=== PATIENT | male | born 1970 | race Caucasian/White ===

== ENCOUNTER 2017-05-13 10:20 | Emergency (ER) | payer MEDICAID, OTHER ==
[2017-05-13 10:34] VITALS: BP 104/69; PULSE 74; RESP 16; TEMP 97.9; O2SAT 98
--- NOTE | 2017-05-13 10:58 | ED PDOC ---
HPI: Eye Injury/Pain Time Seen by Provider: 05/13/17 10:54 Chief Complaint (Nursing): Eye Problem Chief Complaint (Provider): eye complaint History Per: Patient Additional Complaint(s): 46-year-old male presents to emergency Department with pain to the left eye. Patient is status post corneal transplant surgery in 2013 and yesterday and today he noticed sutures coming out of left eye. Patient states that his eye surgeon and explained that this would happen several years after the initial procedure and that he should seek immediate attention when he noticed this. Patient did not contact his eye doctor. He came right to this emergency room. Patient has blurred vision at baseline and denies acute change or loss in left eye vision since suture started coming out yesterday. Past Medical History Reviewed: Historical Data, Nursing Documentation, Vital Signs Vital Signs: Last Vital Signs Temp 97.9 F 05/13/17 10:33 Pulse 74 05/13/17 10:33 Resp 16 05/13/17 10:33 BP 104/69 05/13/17 10:33 Pulse Ox 98 05/13/17 10:33 - Medical History PMH: No Chronic Diseases - Surgical History Other surgeries: left eye corneal transplant - Family History Family History: States: No Known Family Hx - Living Arrangements Living Arrangements: With Family - Home Medications Home Medications: Ambulatory Orders Medication Instructions Recorded Mupirocin 2% Ointment [Bactroban 1 appl TP BID #22 g 07/10/13 Ointment] Naproxen [Naprosyn] 1 tab PO BID PRN #60 tab 07/03/15 Polyethylene Glycol 3350 [Miralax] 17 gm PO DAILY PRN #1 bottle 07/03/15 - Allergies Allergies/Adverse Reactions: Allergies Allergy/AdvReac Type Severity Reaction Status Date / Time No Known Allergies Allergy Verified 07/02/15 19:57 Review of Systems ROS Statement: Except As Marked, All Systems Reviewed And Found Negative Constitutional: Negative for: Fever Eyes: Positive for: Other (left eye pain, sutures coming out of left eye) Neurological: Negative for: Headache, Dizziness Physical Exam - Reviewed Nursing Documentation Reviewed: Yes Vital Signs Reviewed: Yes - Physical Exam Appears: Positive for: Well, Non-toxic, No Acute Distress Eye Exam: Positive for: Other (cornea to left eye appears abnormal, PERRL bilaterally, no sutures are grossly visualized) Neurologic/Psych: Positive for: Alert, Oriented - ECG O2 Sat by Pulse Oximetry: 98 Pulse Ox Interpretation: Normal Medical Decision Making Medical Decision Makin46 year old with left eye pain Patient does not know the name of his eye surgeon and he states at this moment he cannot obtain the name. Patient states he had the procedure done at [facility] [place] and he prefers to go to that ED. I instructed patient to go directly to [facility] and to follow up MARISSA with his eye surgeon. Patient left ED before signing discharge paperwork. Disposition - Clinical Impression Clinical Impression: Eye pain - Patient ED Disposition Is Patient to be Admitted: No Counseled Patient/Family Regarding: Need For Followup - Disposition Referrals: [facility] [place] [Outside] Disposition: Routine/Home Disposition Time: 11:12 Condition: STABLE Additional Instructions: Follow up MARISSA with your eye doctor. Instructions: Eye Pain (ED) Forms: [facility] ([place])
== END 2017-05-13 11:18 | disposition home or self-care (01) ==
LOC: H.ER 10:20
DX: H57.10 Ocular pain, unspecified eye (principal); Z94.7 Corneal transplant status

== ENCOUNTER 2017-07-24 21:45 | Emergency (ER) | payer MEDICAID, OTHER ==
[2017-07-24 22:18] VITALS: BP 111/71; PULSE 64; RESP 16; TEMP 97.7; O2SAT 97
== END 2017-07-24 22:45 | disposition left against medical advice (07) ==
LOC: H.ER 21:45
DX: Z02.89 Encounter for other administrative examinations (principal)

== ENCOUNTER 2018-05-19 18:08 | Emergency (ER) | payer MEDICAID, OTHER ==
[2018-05-19 18:20] VITALS: BP 113/76; PULSE 64; RESP 18; TEMP 97.8; O2SAT 100
[2018-05-19] MEDS ORDERED: Sodium Chloride 0.9% 1,000 ML IV STA (18:31)
--- NOTE | 2018-05-19 18:34 | ED PDOC ---
HPI: Headache Time Seen by Provider: 05/19/18 18:25 Chief Complaint (Nursing): Flu-like Symptoms Chief Complaint (Provider): headache History Per: Patient History/Exam Limitations: no limitations Onset/Duration Of Symptoms: Days (2x) Current Symptoms Are (Timing): Still Present Severity: Moderate Additional Complaint(s): 47 year old male with no pertinent past medical history presents to the ED for an evaluation of a bitemporal headache which radiates down to his neck, coming and going for 2x days. Patient reports also having a tactile fever. Patient states that last week he had a cold which his PMD prescribed him zithromax for, which he is now completing. Patient denies having a cough or history of headaches. PMD: Milton Henderson MD Past Medical History Reviewed: Historical Data, Nursing Documentation, Vital Signs Vital Signs: Last Vital Signs Temp 97.8 F 05/19/18 18:18 Pulse 64 05/19/18 18:18 Resp 18 05/19/18 18:18 BP 113/76 05/19/18 18:18 Pulse Ox 100 05/19/18 18:18 MARIA DEL ROSARIO Report Viewed: Yes - Medical History PMH: No Chronic Diseases - Surgical History Other surgeries: left eye lens surgery - Family History Family History: States: No Known Family Hx - Social History Alcohol: None Drugs: Denies - Immunization History Hx Tetanus Toxoid Vaccination: No Hx Influenza Vaccination: No Hx Pneumococcal Vaccination: No - Home Medications Home Medications: Ambulatory Orders Medication Instructions Recorded RX: Mupirocin 2% Ointment 1 appl TP BID #22 g 07/10/13 [Bactroban Ointment] Polyethylene Glycol 3350 [Miralax] 17 gm PO DAILY PRN #1 bottle 07/03/15 RX: Naproxen [Naprosyn] 1 tab PO BID PRN #60 tab 07/03/15 - Allergies Allergies/Adverse Reactions: Allergies Allergy/AdvReac Type Severity Reaction Status Date / Time No Known Allergies Allergy Verified 07/02/15 19:57 Review of Systems ROS Statement: Except As Marked, All Systems Reviewed And Found Negative Constitutional: Positive for: Fever (tactile) Respiratory: Negative for: Cough Neurological: Positive for: Headache (bitemporal region radiating down neck) Physical Exam - Reviewed Nursing Documentation Reviewed: Yes Vital Signs Reviewed: Yes - Physical Exam Appears: Positive for: Well, Non-toxic, No Acute Distress Head Exam: Positive for: ATRAUMATIC, NORMOCEPHALIC Skin: Positive for: Normal Color, Warm, Dry Eye Exam: Positive for: EOMI, PERRL. Negative for: Normal appearance (pterygium and white discoloration noted to left eye) ENT: Positive for: Normal ENT Inspection Cardiovascular/Chest: Positive for: Regular Rate, Rhythm Respiratory: Positive for: Normal Breath Sounds Neurologic/Psych: Positive for: Alert, Oriented (3x) - Laboratory Results Result Diagrams: 05/19/18 18:48 05/19/18 18:48 - ECG O2 Sat by Pulse Oximetry: 100 (RA) Pulse Ox Interpretation: Normal - CT Scan/US ct head w/o contrast Other Rad Studies (CT/US): Read By Radiologist, Radiology Report Reviewed (see MDM note) - Progress ED Course And Treament: reglan 10 mg iv x 1 dose NS 1 liter wide open toradol 15 mg iv x 1 dose influenza a/b neg HEAD CT wnl Patient feels improved. Medical Decision Making Medical Decision Makin:25 Initial impression: 47 year old male with a headache Initial plan: * CT head w/o contrast * CMP * magnesium * CBC * influenza AB * IV NS 1,000 ml IV 1,000 mls/hr * reglan 10 mg IVP once * reevaluation 19:26 CT head read and reviewed by radiologist FINDINGS: BRAIN No acute intraparenchymal hemorrhage. No mass lesion. No CT evidence for acute territorial infarct. No midline shift or extra-axial collections. VENTRICLES: No hydrocephalus. ORBITS: The orbits are unremarkable. SINUSES AND MASTOIDS: There is inflammatory change within the ethmoid sinuses. BONES: No fracture. SOFT TISSUES: Unremarkable. IMPRESSION: No acute intracranial abnormality. Inflammatory changes ethmoid sinuses. Scribe Attestation: Documented Tiffanie Bustamante, acting as a scribe for Berenice Vigil PA-C. Provider Scribe Attestation: All medical record entries made by the Scribe were at my direction and personally dictated by me. I have reviewed the chart and agree that the record accurately reflects my personal performance of the history, physical exam, medical decision making, and the department course for this patient. I have also personally directed, reviewed, and agree with the discharge instructions and disposition. Disposition - Clinical Impression Clinical Impression: Tension headache - Patient ED Disposition Is Patient to be Admitted: No - Disposition Disposition: Routine/Home Disposition Time: 20:39 Condition: FAIR Instructions: Tension Headache
[2018-05-19 19:07] LABS: BASO # 0.1 K/uL (0.0-0.2); BASO % 0.8 % (0.0-2.0); EOS # 0.5 K/uL (0.0-0.7); EOS % 7.2 % (0.0-4.0); HEMOGLOBIN 14.9 g/dL (12.0-18.0); LYMPH # 1.9 K/uL (1.0-4.3); LYMPH % 29.3 % (20.0-40.0); MEAN CELL VOLUME 88.6 fl (80.0-94.0); MEAN CORPUSCULAR HGB CONC 33.8 g/dL (33.0-37.0); MEAN PLATELET VOLUME 9.5 fl (7.2-11.7); MONO # 0.6 K/uL (0.0-0.8); MONO % 9.4 % (0.0-10.0); NEUT # 3.5 K/uL (1.8-7.0); NEUT % 53.3 % (50.0-75.0); RBC 4.96 Mil/uL (4.40-5.90); RED CELL DISTRIBUTION WIDTH 13.1 % (11.5-14.5); WHITE BLOOD COUNT 6.6 K/uL (4.8-10.8)
[2018-05-19 19:28] LABS: ALB/GLOB RATIO 1.3 (1.0-2.1); ALBUMIN 4.2 g/dL (3.5-5.0); ALT/SGPT 26 U/L (21-72); AST/SGOT 24 U/L (17-59); BLOOD UREA NITROGEN 19 mg/dl (9-20); CALCIUM 9.2 mg/dL (8.4-10.2); GFR NON-AFRICAN AMERICAN > 60
--- NOTE | 2018-05-20 08:53 | CT ---
Date of service: 05/19/2018 PROCEDURE: CT HEAD WITHOUT CONTRAST. HISTORY: HEADACHE COMPARISON: None available. TECHNIQUE: Axial computed tomography images were obtained through the head/brain without intravenous contrast. Radiation dose: Total exam DLP = 816.09 mGy-cm. This CT exam was performed using one or more of the following dose reduction techniques: Automated exposure control, adjustment of the mA and/or kV according to patient size, and/or use of iterative reconstruction technique. FINDINGS: HEMORRHAGE: No intracranial hemorrhage. BRAIN: No mass effect or edema. No atrophy or chronic microvascular ischemic changes. VENTRICLES: Unremarkable. No hydrocephalus. CALVARIUM: Unremarkable. PARANASAL SINUSES: Almost complete opacification of the ethmoid sinuses noted. Right-sided zaid bullosa noted. MASTOID AIR CELLS: Unremarkable as visualized. No inflammatory changes. OTHER FINDINGS: None. IMPRESSION: No evidence of acute intracranial hemorrhage intracranial collection mass effect or midline shift. Preliminary report was submitted by [facility].
== END 2018-05-19 21:00 | disposition home or self-care (01) ==
LOC: H.ER 18:08
DX: G44.209 Tension-type headache, unspecified, not intractable (principal)
CPT/HCPCS: 70450; 80053; 83735; 85025; 87804; 96361; 96374; 96375; 99284; J1885; J2765; J7030